=== PATIENT | male | born 1975 | race Caucasian/White ===

== ENCOUNTER → 2016-11-19 | Outpatient (CLI) | payer SELFPAY ==
[2016-06-04 20:31] VITALS: BP 115/75
[~2016-11-19] MED LIST: CITA20TA5 PO; HYDR-2762 PO; LEVE750T8 PO; OXYC-244 PO; PREG75CA PO; PROM25TA10 PO; PROP10TA PO; TAMS0.4C97 PO
== END | disposition home or self-care (01) ==
LOC: LAB 12:06
PROVIDERS: ATTEND Orthopaedic Surgery
DX: S52.615D Nondisplaced fracture of left ulna styloid process, subsequent encounter for closed fracture with routine healing (principal)
CPT/HCPCS: 36415; 82306